=== PATIENT | male | born 1975 | race Caucasian/White ===

== ENCOUNTER 2017-08-31 19:26 | Emergency (ER) | payer OTHER ==
[2017-08-31 19:45] VITALS: BP 129/86; BMI 32.1
[2017-08-31] MEDS ORDERED: TORADOL 60 MG VIAL IM ONE (20:16)
[2017-08-31] MEDS ORDERED: TORADOL 60 MG VIAL ONE (20:16)
--- NOTE | 2017-08-31 20:26 | DR.GENAD ---
HPI - PCP Primary Care Physician: shi - HPI Comment HPI Comment: STARTED AYO FLU AND ZPACK. GETTING WORSE. - Complaint/Symptoms Chief Complaint Doctors Comments: COUGH, COLD , CONGESTION AND BODY ACHES WITH FEVER TIMES ONE DAY. Chief Complaint:: c/o h/a,nausea,body aches-started on z-pck and tamiflu today - Nurses notes reviewed Nurses Notes Review: Yes - Source History Provided: Patient - Mode of Arrival Mode of Arrival: Ambulatory - Timing Onset of Chief Complaint: 08/30/17 Came on: Suddenly - Duration Duration: Constant Duration: Days - Severity Severity: Moderate PMH - PMH Past Medical History: No Past Medical History: Hypertension, Anxiety, GERD Past Surgical History: Yes Surgical History: Ortho Surgery - Family History History of Family Medical Conditions: No Family Medical History: Diabetes Mellitus - Social History Does patient currently use any type of tobacco product: No Have you used tobacco products in the last 12 months: No Type of Tobacco Use: None Do you use any recreational Drugs:: No - infectious screening Have you traveled outside the country in the last 6 months?: No Isolation: Standard ROS - Review of Systems Constitutional: Chills, Fever, Weakness, Fatigue Eyes: negative: Eye Pain, Discharge ENTM: Nose Discharge, Nose Congestion, Throat Pain. negative: Ear Pain Respiratoy: Productive Cough. negative: Short of Breath, Wheezing, Hemoptysis Cardiovascular: No Symptoms Reported Gastrointestinal/Abdominal: No Symptoms Reported Genitourinary: No Symptoms Reported Neurological: Headache Musculoskeletal: Muscle Pain Integumentary: No Symptoms Reported Hematologic/Lymphatic: No Symptoms Reported Endocrine: No Symptoms Reported All Other Systems: Reviewed and Negative PE - Vital Signs Vitals: Temperature 103.6 F Pulse Rate 110 Respiratory Rate 18 Blood Pressure 129/86 O2 Sat by Pulse Oximetry 96 - General Limitations: No Limitations General Appearance: Alert - Head Head Exam: Normal Inspection - Eyes Eye exam: Normal Appearance - ENT ENT Exam: Normal External Ear Exam External Ear Exam: Normal External Inspection TM/Canal Exam: Bilateral Bulging Nose Exam: Normal Nose Exam Mouth Exam: Normal Inspection Throat Exam: Tonsillar Erythema. negative: Tonsillomegaly, Tonsillar Exudate - Neck Neck Exam: Trachea Midline - Chest Chest Inspection: Symmetric Chest Wall Rise - Respiratory Respiratory Exam: Normal Lung Sounds Bilat Respiratory Exam: Bilateral Clear to Auscultation - Cardiovascular Cardiovascular Exam: Regular Rate, Normal Rhythm, Normal Heart Sounds - Abdominal Exam Abdominal Exam: Normal Bowel Sounds, Soft. negative: Tenderness - Extremities Extremities Exam: Normal Inspection - Back Back Exam: Normal Inspection - Neurologic Neurological Exam: Alert, Oriented X3 - Psychiatric Psychiatric Exam: Normal Affect, Normal Mood - Skin Skin Exam: Normal Color MDM - Differential Diagnosis Differential Diagnosis: INFLUENZA, SINUSITIS, SINUS HEADACHE, STREP THROAT Course - Treatment Treatment: SEE ORDERS. - Education/Counseling Education/Counseling: Patient, Education Educated On: Diagnosis, Needs for Follow Up ROR - Labs Reviewed Laboratory Results Reviewed?: Yes Result Diagrams: 08/31/17 20:42 08/31/17 20:42 Laboratory: 08/31/17 20:19 Throat Throat Culture - Final WBC 8.4 X10^3/uL (3.6-10.0) 08/31/17 20:42 RBC 4.80 X10^6/uL (4.7-6.0) 08/31/17 20:42 Hgb 14.4 g/dL (13.5-18.0) 08/31/17 20:42 Hct 41.2 % (42.0-54.0) L 08/31/17 20:42 MCV 85.7 fL (80.0-100.0) 08/31/17 20:42 MCH 30.0 pg (27.0-34.0) 08/31/17 20:42 MCHC 34.9 g/dL (33.0-35.0) 08/31/17 20:42 RDW 12.9 % (11.6-16.5) 08/31/17 20:42 Plt Count 113 X10^3/uL (150.0-450.0) L 08/31/17 20:42 MPV 9.7 fL (7.4-11.0) 08/31/17 20:42 Neut % 86.2 % (42.0-75.0) H 08/31/17 20:42 Lymph % 5.3 % (21.0-51.0) L 08/31/17 20:42 Walton % 7.2 % (0.0-13.0) 08/31/17 20:42 Eos % 0.8 % (0.9-2.9) L 08/31/17 20:42 Baso % 0.5 % (0.2-1.0) 08/31/17 20:42 Neut # 7.2 x10^3/uL (2.2-4.8) H 08/31/17 20:42 Lymph # 0.4 X10^3/uL (1.3-2.9) L 08/31/17 20:42 Walton # 0.6 x10^3/uL (0.3-0.8) 08/31/17 20:42 Eos # 0.1 x10^3/uL (0.0-0.2) 08/31/17 20:42 Baso # 0.0 X10^3/uL (0.0-0.1) 08/31/17 20:42 Absolute Nucleated RBC 0.0 /100WBC 08/31/17 20:42 Sodium 136 mmol/L (136-145) 08/31/17 20:42 Corrected Sodium 136 mmol/L (136-145) 08/31/17 20:42 Potassium 3.7 mmol/L (3.5-5.1) 08/31/17 20:42 Chloride 100 mmol/L (98-107) 08/31/17 20:42 Carbon Dioxide 27.9 mmol/L (21-32) 08/31/17 20:42 BUN 13 mg/dL (7-18) 08/31/17 20:42 Creatinine 1.06 mg/dL (0.70-1.30) 08/31/17 20:42 Est GFR (MDRD) Af Amer > 60 (>60) 08/31/17 20:42 Est GFR (MDRD) Non-Af > 60 (>60) 08/31/17 20:42 Glucose 120 mg/dL (65-99) H 08/31/17 20:42 Calcium 8.6 mg/dL (8.5-10.1) 08/31/17 20:42 Corrected Calcium TNP 08/31/17 20:42 Total Bilirubin 0.50 mg/dL (0.2-1.0) 08/31/17 20:42 AST 25 Units/L (15-37) 08/31/17 20:42 ALT 38 Units/L (12-78) 08/31/17 20:42 Alkaline Phosphatase 81 Units/L (46-116) 08/31/17 20:42 Total Protein 7.1 g/dL (6.4-8.2) 08/31/17 20:42 Albumin 3.6 g/dL (3.4-5.0) 08/31/17 20:42 Globulin 3.5 g/dL (2.5-4.5) 08/31/17 20:42 Albumin/Globulin Ratio 1.0 Ratio (1.1-2.1) L 08/31/17 20:42 Influenza Type A (PCR) Positive (NEGATIVE) A 08/31/17 20:19 Influenza Type B (PCR) Negative (NEGATIVE) 08/31/17 20:19 Streptococcus Screen Negative (NEGATIVE) 08/31/17 20:19 - XRAY XRAY Interpreted by: Radiologist XRAY Findings: REPORT DISCUSS WITH PATIENT. - Diagnosis Discharge Problem: Influenza, Sinus headache Sinusitis Qualifiers: Sinusitis location: unspecified location Chronicity: acute Recurrence: not specified as recurrent Qualified Code(s): J01.90 - Acute sinusitis, unspecified - Discharge Plan Disposition: HOME, SELF-CARE Condition: Stable Prescriptions: Acetaminophen with Codeine [Tylenol/Codeine #3 300-30 mg] 1 tab PO Q6H PRN #15 tab PRN Reason: Pain Cetirizine HCl [Zyrtec Tab 10 mg] 10 mg PO DAILY #10 tab - Follow ups/Referrals Follow ups/Referrals: NFD,None [Primary Care Provider] - 3 days - Instructions Instructions: Influenza, Adult, [id number], Sinusitis, Adult, [id number], Sinus Headache, [id number] Additional Instructions: RETURN TO ED IF WORSE. CONTINUE TAMIFLU AND ZITHROMAX.
[2017-08-31 20:49] LABS: BASOPHILS % (AUTO) 0.5 % (0.2-1.0); EOSINOPHILS # (AUTO) 0.1 x10^3/uL (0.0-0.2); EOSINOPHILS % (AUTO) 0.8 % (0.9-2.9); HEMATOCRIT 41.2 % (42.0-54.0); HEMOGLOBIN 14.4 g/dL (13.5-18.0); LYMPHOCYTES # (AUTO) 0.4 X10^3/uL (1.3-2.9); LYMPHOCYTES % (AUTO) 5.3 % (21.0-51.0); MEAN CORPUSCULAR HGB CONC 34.9 g/dL (33.0-35.0); MEAN CORPUSCULAR VOLUME 85.7 fL (80.0-100.0); MEAN PLATELET VOLUME 9.7 fL (7.4-11.0); MONOCYTES # (AUTO) 0.6 x10^3/uL (0.3-0.8); MONOCYTES % (AUTO) 7.2 % (0.0-13.0); NEUTROPHILS # (AUTO) 7.2 x10^3/uL (2.2-4.8); NEUTROPHILS % (AUTO) 86.2 % (42.0-75.0); PLATELET COUNT 113 X10^3/uL (150.0-450.0); RED CELL DISTRIBUTION WIDTH 12.9 % (11.6-16.5); WHITE BLOOD COUNT 8.4 X10^3/uL (3.6-10.0)
[2017-08-31 21:01] LABS: ALANINE AMINOTRANSFERASE 38 Units/L (12-78); ALBUMIN 3.6 g/dL (3.4-5.0); ALKALINE PHOSPHATASE 81 Units/L (46-116); ASPARTATE AMINO TRANSFERASE 25 Units/L (15-37); BLOOD UREA NITROGEN 13 mg/dL (7-18); CALCIUM 8.6 mg/dL (8.5-10.1); CARBON DIOXIDE 27.9 mmol/L (21-32); CHLORIDE 100 mmol/L (98-107); COR NA(FOR HYPERGLY) 136 mmol/L (136-145); CREATININE 1.06 mg/dL (0.70-1.30); SODIUM 136 mmol/L (136-145); TOTAL PROTEIN 7.1 g/dL (6.4-8.2); eGFR BLACK RACES > 60 (>60); eGFR NON BLACK RACES > 60 (>60)
--- NOTE | 2017-08-31 21:05 | RAD ---
PA and lateral Chest Indication: Body aches with nausea Comparison: None available Findings: The trachea is midline. The cardiac silhouette is unremarkable. The lungs are clear without focal i nfiltrate or effusion. The bony thorax is unremarkable. IMPRESSION: 1. No acute cardiopulmonary abnormality. Reported By:
[2017-08-31] MEDS ORDERED: TYLENOL #3 TAB (W/CODEINE) PO ONE ×3 (21:20→21:28)
[2017-08-31] MEDS ORDERED: ZyrTEC TAB 10 MG PO ONE (21:21)
[2017-08-31] MEDS ORDERED: ZyrTEC TAB 10 MG ONE ×2 (21:25→21:28)
== END 2017-08-31 21:32 | disposition home or self-care (01) ==
LOC: ER 19:26
DX: J11.1 Influenza due to unidentified influenza virus with other respiratory manifestations (principal); R51 Headache; J01.80 Other acute sinusitis
CPT/HCPCS: 36415; 71046; 80053; 85025; 87070; 87502; 87880; 96372; 99282; 99283; J1885